=== PATIENT | male | born 1930 | race Caucasian/White ===

== ENCOUNTER 2017-03-22 00:35 | Inpatient (IN) | payer OTHER ==
[~2017-03-22] VITALS: Ht 182.9 cm; Wt 63.7 kg
[~2017-03-22 00:35] MED LIST: AMLODIPINE BESY10 MG PO; ANUCORT-HC25 MG PR; Ativan PO; CEFTIN250 MG PO; CHOLESTYRAMINE P4 GM PO; CYANOCOBALAM1000 MCG PO; DOXAZOSIN MESYLA1 MG PO; DOXAZOSIN MESYLA2 MG PO; FUROSEMIDE40 MG PO; IRON325 MG PO; KAYEXALATE15 GM/60 M PO; LOMOTIL TABLET1 EACH PO; LOPRESSOR50 MG PO; METOPROLOL TART25 MG PO; NORVASC10 MG PO; OMEPRAZOLE40 M1 PO; PANTOPRAZOLE SO40 MG PO; PROBIOTIC1 EAC1 PO; PROCRIT40000 UNI1 IV; TOPROL XL50 MG PO; TYLENOL ARTHRI650 MG PO; TYLENOL REGULA325 MG PO; Tylenol Regular Stre PO; VANCOMYCIN HCL250 MG PO; VITAMIN B-12500 MC4 PO; VITAMIN B12 100MCG PO; VITAMIN D1000 INTUN PO; VITAMIN D31000 UNIT PO; Zithromax PO
[2017-03-22 03:52] LABS: EOSINOPHIL (%) 0.9 % (0-5); EOSINOPHIL COUNT 0.1 K/uL (0-0.3); HEMATOCRIT 32.6 % (38.0-50.0); IMMATURE GRANULOCYTE (%) 0.3 % (0.0-0.7); INSTRUMENT ABS NEUTROPHIL CT 7.6 K/uL; LYMPHOCYTE COUNT 0.7 K/uL (1.0-2.8); MCH 24.3 PG (29.0-34.0); MCHC 30.4 G/DL (30.0-36.0); MCV 79.9 FL (86-99); MEAN PLAT.VOLUME 8.5 uM^3 (9.0-12.4); MONOCYTE (%) 5.7 % (3-12); MONOCYTE COUNT 0.5 K/uL (0-0.8); NEUTROPHIL (%) 85.5 % (45-76); NEUTROPHIL COUNT 7.6 K/uL (1.8-6.4); PLATELET COUNT 183 K/uL (156-360); RBC DIS.WIDTH-CV 19.2 % (11.8-14.6); RBC DIS.WIDTH-SD 55.4 % (39-53); RED BLOOD COUNT 4.08 M/uL (4.00-5.50); WHITE BLOOD COUNT 8.8 K/uL (4.1-10.2)
[2017-03-22 04:04] LABS: INTER. NORMALIZED RATIO 1.1; PROTHROMBIN TIME 10.9 (9.2-11.2); PTT 39.7 (25-32)
[2017-03-22 04:06] LABS: CHLORIDE 111 mEq/L (99-109); POTASSIUM 4.9 mEq/L (3.7-5.4); SODIUM 135 mEq/L (136-147)
[2017-03-22 04:08] LABS: GLUCOSE 96 mg/dL (70-99)
[2017-03-22 04:09] LABS: ANION GAP 7 MEQ/L (2-14)
[2017-03-22 04:10] LABS: TOTAL BILIRUBIN 0.3 mg/dL (0.0-1.0)
[2017-03-22 04:11] LABS: ALKALINE PHOSPHATASE 74 IU/L (3-129)
[2017-03-22 04:12] LABS: GFR ESTIMATE (CALCULATED) 28 mL/min/
[2017-03-22 04:13] LABS: UREA NITROGEN (BUN) 38 mg/dL (9-23)
[2017-03-22 04:15] LABS: LIPASE 34 U/L (1.0-51.0)
[2017-03-22] MEDS ORDERED: NORVASC10 MG PO (07:52)
[2017-03-22 08:25] LABS: HEMATOCRIT 30.2 % (38.0-50.0); MCV 79.5 FL (86-99)
[2017-03-22 09:48] VITALS: BP 144/68
[2017-03-22 15:13] LABS: C DIFF TOXIN POSITIVE (NEGATIVE)
[2017-03-22 15:32] LABS: PROBE CHECK PASS
[2017-03-22 16:10] VITALS: BP 149/72
[2017-03-22 19:33] VITALS: BP 126/61
[2017-03-22 21:47] LABS: HEMATOCRIT 28.2 % (38.0-50.0); MCV 80.3 FL (86-99)
[2017-03-22 23:08] VITALS: BP 143/68
[2017-03-23 03:27] VITALS: BP 139/66
[2017-03-23 07:25] LABS: ANION GAP 6 MEQ/L (2-14); CHLORIDE 115 MEQ/L (99-109); GFR ESTIMATE (CALCULATED) 34 mL/min/; GLUCOSE 79 mg/dL (70-99); POTASSIUM 4.6 MEQ/L (3.7-5.4); SAMPLE HEMOLYSIS CHECK 0; SAMPLE ICTERIC CHECK 0; SAMPLE LIPEMIA CHECK 0; SODIUM 139 MEQ/L (136-147); UREA NITROGEN (BUN) 27 mg/dL (9-23)
[2017-03-23 07:44] LABS: HEMATOCRIT 28.6 % (38.0-50.0); MCV 80.8 FL (86-99)
[2017-03-23 08:25] LABS: EOSINOPHIL (%) 1.5 % (0-5); EOSINOPHIL COUNT 0.1 K/uL (0-0.3); IMMATURE GRANULOCYTE (%) 0.3 % (0.0-0.7); INSTRUMENT ABS NEUTROPHIL CT 5.5 K/uL; LYMPHOCYTE COUNT 0.7 K/uL (1.0-2.8); MCH 24.8 PG (29.0-34.0); MCHC 30.7 G/DL (30.0-36.0); MEAN PLAT.VOLUME 9.1 uM^3 (9.0-12.4); MONOCYTE (%) 7.3 % (3-12); MONOCYTE COUNT 0.5 K/uL (0-0.8); NEUTROPHIL (%) 80.7 % (45-76); NEUTROPHIL COUNT 5.5 K/uL (1.8-6.4); PLATELET COUNT 201 K/uL (156-360); RBC DIS.WIDTH-CV 19.2 % (11.8-14.6); RBC DIS.WIDTH-SD 56.4 % (39-53); RED BLOOD COUNT 3.47 M/uL (4.00-5.50); WHITE BLOOD COUNT 6.8 K/uL (4.1-10.2)
[2017-03-23 09:03] VITALS: BP 149/74
[2017-03-23 12:00] VITALS: BP 120/62
[2017-03-23 17:26] VITALS: BP 138/65
[2017-03-23 19:20] VITALS: BP 138/62
[2017-03-23 20:59] LABS: HEMATOCRIT 28.4 % (38.0-50.0)
[2017-03-24 08:39] LABS: HEMATOCRIT 33.2 % (38.0-50.0); MCV 80.2 FL (86-99)
[2017-03-24 09:40] LABS: ALKALINE PHOSPHATASE 88 IU/L (3-129); ANION GAP 9 MEQ/L (2-14); CHLORIDE 110 MEQ/L (99-109); GFR ESTIMATE (CALCULATED) 32 mL/min/; POTASSIUM 4.4 MEQ/L (3.7-5.4); SAMPLE HEMOLYSIS CHECK 0; SAMPLE ICTERIC CHECK 0; SAMPLE LIPEMIA CHECK 0; SODIUM 137 MEQ/L (136-147); TOTAL BILIRUBIN 0.4 MG/DL (0.0-1.0); UREA NITROGEN (BUN) 21 mg/dL (9-23)
[2017-03-24 09:49] LABS: GLUCOSE 111 mg/dL (70-99)
[2017-03-24 10:10] VITALS: BP 140/60
[2017-03-24 12:00] VITALS: BP 135/58
[2017-03-24 17:21] VITALS: BP 130/62
[2017-03-24 20:06] LABS: HEMATOCRIT 28.5 % (38.0-50.0); MCV 79.8 FL (86-99)
[2017-03-25] VITALS: BP 136/63
[2017-03-25 04:26] VITALS: BP 130/63
[2017-03-25 06:32] LABS: EOSINOPHIL (%) 1.9 % (0-5); EOSINOPHIL COUNT 0.2 K/uL (0-0.3); HEMATOCRIT 30.1 % (38.0-50.0); IMMATURE GRANULOCYTE (%) 0.4 % (0.0-0.7); INSTRUMENT ABS NEUTROPHIL CT 6.8 K/uL; LYMPHOCYTE COUNT 0.6 K/uL (1.0-2.8); MCH 24.3 PG (29.0-34.0); MCHC 30.6 G/DL (30.0-36.0); MCV 79.6 FL (86-99); MEAN PLAT.VOLUME 9.5 uM^3 (9.0-12.4); MONOCYTE COUNT 0.6 K/uL (0-0.8); NEUTROPHIL (%) 82.9 % (45-76); NEUTROPHIL COUNT 6.8 K/uL (1.8-6.4); PLATELET COUNT 223 K/uL (156-360); RBC DIS.WIDTH-CV 18.9 % (11.8-14.6); RBC DIS.WIDTH-SD 54.5 % (39-53); RED BLOOD COUNT 3.78 M/uL (4.00-5.50); WHITE BLOOD COUNT 8.2 K/uL (4.1-10.2)
[2017-03-25 07:00] LABS: ANION GAP 8 MEQ/L (2-14); CHLORIDE 112 MEQ/L (99-109); GFR ESTIMATE (CALCULATED) 34 mL/min/; GLUCOSE 91 mg/dL (70-99); POTASSIUM 4.5 MEQ/L (3.7-5.4); SAMPLE HEMOLYSIS CHECK 0; SAMPLE ICTERIC CHECK 0; SAMPLE LIPEMIA CHECK 0; SODIUM 138 MEQ/L (136-147); UREA NITROGEN (BUN) 21 mg/dL (9-23)
[2017-03-25 07:10] VITALS: BP 140/48
[2017-03-25 08:00] VITALS: BP 158/66
[2017-03-25] MEDS ORDERED: VANCOCIN 250 M250 MG PO ×2 (13:23→14:08)
== END 2017-03-25 15:34 | disposition home or self-care (01) | DRG 372 ==
LOC: EME 00:35 → 5EAST 06:27 → EDOF 06:27 → 5EAST 09:02
PROVIDERS: Emergency Medicine; Hospitalist
DX: A04.7 Enterocolitis due to Clostridium difficile (principal); D50.9 Iron deficiency anemia, unspecified; I12.9 Hypertensive chronic kidney disease with stage 1 through stage 4 chronic kidney disease, or unspecified chronic kidney disease; N18.4 Chronic kidney disease, stage 4 (severe); I27.2 Other secondary pulmonary hypertension; G70.00 Myasthenia gravis without (acute) exacerbation; Z66 Do not resuscitate; Z51.5 Encounter for palliative care; Z80.0 Family history of malignant neoplasm of digestive organs; Z85.46 Personal history of malignant neoplasm of prostate; Z86.19 Personal history of other infectious and parasitic diseases; Z90.49 Acquired absence of other specified parts of digestive tract
CPT/HCPCS: 74176; 80048; 80053; 83690; 85014; 85018; 85025; 85610; 85730; 86870; 86900; 86901; 86905; 86920; 87493; 93005; 99281; 99285; C9113; J7030